=== PATIENT | female | born 1945 | race Caucasian/White ===

== ENCOUNTER → 2019-07-16 | Outpatient (CLI) | payer OTHER ==
[~2019-07-16] MED LIST: ASPI-555 PO; DICL1TAB5 PO; DULO30CA52 PO; LISI10TA7 PO; METO100T7 PO; MULT-1192 PO; OMEG100014 PO; RANI150C4 PO; ROSU10TA22 PO; VIT B COMPLEX PO
== END | disposition home or self-care (01) ==
LOC: RAH 12:39
PROVIDERS: ATTEND Internal Medicine
DX: Z01.818 Encounter for other preprocedural examination (principal); M47.814 Spondylosis without myelopathy or radiculopathy, thoracic region; M19.012 Primary osteoarthritis, left shoulder; M19.011 Primary osteoarthritis, right shoulder; I70.0 Atherosclerosis of aorta
CPT/HCPCS: 71046

== ENCOUNTER 2019-08-02 10:00 | Inpatient (IN) | payer OTHER ==
[~2019-08-02] VITALS: Ht 160 cm; Wt 83.8 kg
[~2019-08-02 10:00] MED LIST changes: -ASPI-555 PO; -DICL1TAB5 PO; -LISI10TA7 PO; -MULT-1192 PO; -RANI150C4 PO; -VIT B COMPLEX PO
[2019-08-02 12:33] LABS: BASOPHILS % (AUTO) 0.6 % (0.0-5.0); EOSINOPHILS % (AUTO) 2.6 % (0.0-8.0); HEMATOCRIT 38.8 % (36-48); LYMPHOCYTES % (AUTO) 23.2 % (21.0-51.0); MEAN CORPUSCULAR HEMOGLOBIN 30.3 pg (27.0-33.0); MEAN CORPUSCULAR HGB CONC 31.7 g/dL (32.0-36.0); MEAN CORPUSCULAR VOLUME 95.6 fL (79-99); MONOCYTES % (AUTO) 6.9 % (3.0-13.0); NEUTROPHILS % (AUTO) 66.5 % (40.0-77.0); PLATELET COUNT (AUTO) 241 K/uL (130-400); RED BLOOD CELL COUNT(AUTO) 4.06 MIL/uL (4.00-5.50); RED CELL DISTRIBUTION WIDTH 12.9 % (11.0-15.5); WHITE BLOOD COUNT (AUTO) 8.5 K/uL (4.8-10.8)
[2019-08-02 12:41] LABS: INR 0.97 (0.85-1.15); PROTHROMBIN TIME 10.5 SEC (9.6-11.6)
[2019-08-02 12:47] LABS: CREATININE 0.9 mg/dL (0.5-1.5); POTASSIUM 4.4 mmol/L (3.5-5.1)
[2019-08-02 13:27] VITALS: BP 181/73
[2019-08-02] MEDS ORDERED: VITAMIN B12 PO (14:34)
[2019-08-02] MEDS ORDERED: FAMO20TA8 PO (14:34)
[2019-08-02] MEDS ORDERED: LISI30TA4 PO (14:34)
[2019-08-02] MEDS ORDERED: L.AC1CAP6 PO (14:34)
[2019-08-02] MEDS ORDERED: CHOL200079 PO (14:34)
[2019-08-02] MEDS ORDERED: ASCO500T20 PO (14:34)
[2019-08-02] MEDS ORDERED: DICL2100G TP (14:34)
[2019-08-02] MEDS ORDERED: TRAM50TA4 PO (14:34)
[2019-08-02] MEDS ORDERED: TYLENOL PO (14:34)
[2019-08-02] MEDS ORDERED: MV-M1TAB57 PO (14:34)
[2019-08-02] MEDS ORDERED: DICL1TAB5 PO (14:34)
[2019-08-04 10:21] VITALS: BP 129/74
[2019-08-04] MEDS: CEFAZOLIN SODIUM 1 GM VIAL IVP SCH (10:30)
[2019-08-04] MEDS ORDERED: LACTATED RINGERS 1000ML 1,000 ML IV ONE (10:34)
--- NOTE | 2019-08-04 11:00 | NUR ---
POTENTIAL FOR INFECTION: NO SHAVING NEEDED TO LEFT HIP LEFT UPPER LEG ASSESSED PER TRUDY HUGHES. WIPED LEFT HIP / LEFT UPPER LEG WITH TREVOR: 2% CHLORHEXIDINE GLUCONATE CLOTH PATIENTS PRE-OP SKIN PREP PER TRUDY HUGHES.
[2019-08-04] MEDS ORDERED: ASPI-555 PO (11:35)
[2019-08-04] MEDS ORDERED: KETOROLAC TROMETHAMINE 15MG/ML ONE (15:33)
[2019-08-04] MEDS ORDERED: ACETAMINOPHEN EXTRA STRENGTH 500 MG TABLET ONE (15:33)
[2019-08-04] MEDS ORDERED: OXYCODONE HCL 10 MG TAB.SR.12H PO ONE (15:34)
[2019-08-04] MEDS ORDERED: LIDOCAINE PF 2% 5ML ABBOJECT ONE (15:36)
[2019-08-04] MEDS ORDERED: SUCCINYLCHOLINE 200MG/10ML SYR ONE ×2 (15:37→15:40)
[2019-08-04] MEDS: CELECOXIB 200 MG CAP ONE (15:37)
[2019-08-04] MEDS ORDERED: PROPOFOL 10 MG/ML 20ML VIAL IV ONE (15:37)
[2019-08-04] MEDS ORDERED: NEOSTIGMINE 5MG/5ML SYR IV ONE (15:37)
[2019-08-04] MEDS ORDERED: ONDANSETRON HCL 4 MG/2 ML VIAL ONE (15:37)
[2019-08-04] MEDS ORDERED: DEXAMETHASONE SOD PHOSPHATE 10MG/ML 1ML VIAL ONE (15:37)
[2019-08-04] MEDS ORDERED: GLYCOPYRROLATE 1 MG/5 ML SYRINGE ONE (15:37)
[2019-08-04] MEDS ORDERED: FENTANYL CITRATE PF 50 MCG/1 ML 2ML VIAL ONE (15:38)
[2019-08-04] MEDS ORDERED: ROCURONIUM 10MG/1ML SYR 10 MG/ML ML ONE (15:38)
[2019-08-04] MEDS ORDERED: MIDAZOLAM HCL 1 MG/ML 2ML VIAL ONE (15:38)
[2019-08-04 17:55] VITALS: BP 133/63
[2019-08-04] MEDS ORDERED: SODIUM CHLORIDE 0.9% 10 ML VIAL IVP PRN (19:00)
[2019-08-04] MEDS ORDERED: ENOXAPARIN SODIUM 30 MG/0.3 ML SQ ONE (19:30)
[2019-08-04 20:00] VITALS: BP 120/64
[2019-08-04] MEDS ORDERED: TYLENOL 650 MG PO PRN (20:30)
[2019-08-04] MEDS ORDERED: FAMOTIDINE 20MG TAB 20 MG TAB PO PRN (20:30)
[2019-08-04] MEDS ORDERED: TRAMADOL HCL 50 MG TABLET PO PRN (20:30)
[2019-08-04] MEDS ORDERED: ACETAMINOPHEN 325 MG TAB PO PRN (21:15)
[2019-08-04 23:56] VITALS: BP 127/66
[2019-08-05] VITALS (24 sets, daily range): BP systolic 109–161; BP diastolic 58–75
[2019-08-05] MEDS: CEFAZOLIN SODIUM 1 GM VIAL IVP SCH ×4 (06:00→23:59)
[2019-08-05] MEDS ORDERED: METOPROLOL SUCCINATE 50 MG TAB.SR.24H PO ONE (07:11)
[2019-08-05] MEDS ORDERED: LACTATED RINGERS 1000ML 1,000 ML IV ONE (07:28)
[2019-08-05] MEDS: METOPROLOL SUCCINATE 50 MG TAB.SR.24H PO SCH (07:28)
[2019-08-05] MEDS ORDERED: KETOROLAC TROMETHAMINE 15MG/ML ONE (07:42)
[2019-08-05] MEDS ORDERED: CEFAZOLIN SODIUM 1 GM VIAL ONE ×2 (07:59→11:37)
[2019-08-05] MEDS ORDERED: TRANEXAMIC ACID 1000MG/10ML ONE (07:59)
[2019-08-05] MEDS ORDERED: NEOSTIGMINE 5MG/5ML SYR IV ONE (08:04)
[2019-08-05] MEDS ORDERED: MIDAZOLAM HCL 1 MG/ML 2ML VIAL ONE (08:04)
[2019-08-05] MEDS ORDERED: LIDOCAINE PF 2% 5ML ABBOJECT ONE (08:04)
[2019-08-05] MEDS ORDERED: ROCURONIUM 10MG/1ML SYR 10 MG/ML ML ONE (08:04)
[2019-08-05] MEDS ORDERED: PROPOFOL 10 MG/ML 20ML VIAL IV ONE (08:04)
[2019-08-05] MEDS ORDERED: FENTANYL CITRATE PF 50 MCG/1 ML 2ML VIAL ONE ×2 (08:05→09:35)
[2019-08-05] MEDS: CELECOXIB 200 MG CAP ONE (08:20)
[2019-08-05] MEDS ORDERED: ACETAMINOPHEN EXTRA STRENGTH 500 MG TABLET ONE (08:25)
[2019-08-05] MEDS ORDERED: CELECOXIB 200 MG CAP ONE (08:25)
[2019-08-05] MEDS ORDERED: OXYCODONE HCL 10 MG TAB.SR.12H PO ONE (08:26)
[2019-08-05] MEDS: CRESTOR 10MG PO SCH (08:32)
[2019-08-05] MEDS ORDERED: NON-FORMULARY MEDICATION 1 EACH (Metoprolol Succinate (Toprol Xl) 100 MG) PO SCH (09:00)
[2019-08-05] MEDS ORDERED: NON-FORMULARY MEDICATION 1 EACH (Lisinopril 30 MG) PO SCH (09:00)
[2019-08-05] MEDS ORDERED: NON-FORMULARY MEDICATION 1 EACH (Rosuvastatin Calcium (Crestor) 10 MG) PO SCH (09:00)
[2019-08-05] MEDS ORDERED: EPHEDRINE SULFATE 50 MG/ML AMPULE ONE ×2 (09:02→09:21)
[2019-08-05] MEDS ORDERED: ONDANSETRON HCL 4 MG/2 ML VIAL IVP PRN (11:15)
[2019-08-05] MEDS ORDERED: LIDOCAINE HCL-MPF 1% 2ML VIAL IV PRN (11:15)
[2019-08-05] MEDS ORDERED: CALCIUM CARBONATE 500 MG TABLET PO PRN (11:15)
[2019-08-05] MEDS ORDERED: POTASSIUM CHLORIDE 20MEQ/100ML 100 ML IV PRN (11:15)
[2019-08-05] MEDS: ACETAMINOPHEN EXTRA STRENGTH 500 MG TABLET PO SCH ×2 (11:15→16:07)
[2019-08-05] MEDS ORDERED: POTASSIUM CHLORIDE 20 MEQ ERTAB PO PRN (11:15)
[2019-08-05] MEDS ORDERED: OXYCODONE HCL 5 MG TAB PO PRN ×2 (11:15)
[2019-08-05] MEDS ORDERED: DiphenhydrAMINE HCL 50 MG/ML VIAL IVP PRN (11:15)
[2019-08-05] MEDS ORDERED: TEMAZEPAM 15 MG CAPSULE PO PRN (11:15)
[2019-08-05] MEDS ORDERED: POTASSIUM CHLORIDE 10% ELIXIR 20 MEQ/15 ML UDCUP PO PRN (11:15)
[2019-08-05] MEDS: RANITIDINE HCL 15 MG/1 ML PO SCH ×2 (11:29→19:58)
[2019-08-05] MEDS: KETOROLAC TROMETHAMINE 15MG/ML IV PRN (12:58)
[2019-08-05] MEDS: DULOXETINE HCL 30 MG CAP PO SCH (12:58)
[2019-08-05] MEDS: LISINOPRIL 10 MG TABLET PO SCH (12:58)
[2019-08-05] MEDS: SODIUM CHLORIDE 0.9% 1000ML 1,000 ML IV SCH ×2 (12:59→21:14)
--- NOTE | 2019-08-05 14:09 | NUR ---
INITIAL MET W PATIENT FOR DISCHARGE PLANNING- PT LIVES ALONE, WITH PETS ,- 6 CATS-- HAS SUPPORTIVE FAMILY , NIECE AND GREAT NIECE.- NO STAIRS AT HOME, HAS ALL DME BUT DOES NOT USE- PREVIOUSLY INDEPENDENT AND DRIVES- ORDER FOR IP REHAB- 'PATIENT STATES WANTS [facility], VERBAL UGO FOR SAME , REP SHIRA NOTIFIED AND REFERRAL INITIATED. Addendum: 08/05/19 at 1421 by PÉREZ RIVERA RN CM Amended: Links added.
[2019-08-05] MEDS: CELECOXIB 200 MG CAP PO SCH (19:58)
[2019-08-05] MEDS: PREGABALIN 25 MG CAP PO SCH (19:58)
[2019-08-05] MEDS: ASPIRIN 81MG TAB.CHEW PO SCH (19:59)
[2019-08-06] MEDS: KETOROLAC TROMETHAMINE 15MG/ML IV PRN (01:13)
--- NOTE | 2019-08-06 03:00 | NUR ---
ROUNDS PATIENT AWAKE AND ALERT IN BED. NO COMPLAINTS OF PAIN VOICED AT THIS TIME. VITALS STABLE. AFEBRILE. RESP EVEN AND UNLABORED. NO SOB NOTED. ON ROOM AIR. IN GOOD SPIRITS. VOIDING WITHOUT DIFFICULTY VIA BEDPAN. NETTA DRESSING INTACT. FAMILY AT BEDSIDE. CALL LIGHT WITHIN REACH. WILL CONTINUE TO BE OBSERVED. Addendum: 08/06/19 at 8691 by LORNA ANDRE RN RN Amended: Links added.
[2019-08-06 03:18] VITALS: BP 108/50
[2019-08-06] MEDS: ACETAMINOPHEN EXTRA STRENGTH 500 MG TABLET PO SCH ×3 (03:54→18:47)
[2019-08-06 05:46] LABS: HEMATOCRIT 26.7 % (36-48); MEAN CORPUSCULAR HEMOGLOBIN 30.6 pg (27.0-33.0); MEAN CORPUSCULAR HGB CONC 32.6 g/dL (32.0-36.0); PLATELET COUNT (AUTO) 167 K/uL (130-400); RED BLOOD CELL COUNT(AUTO) 2.84 MIL/uL (4.00-5.50); RED CELL DISTRIBUTION WIDTH 12.9 % (11.0-15.5); WHITE BLOOD COUNT (AUTO) 9.7 K/uL (4.8-10.8)
[2019-08-06 05:53] LABS: CREATININE 0.9 mg/dL (0.5-1.5); POTASSIUM 3.9 mmol/L (3.5-5.1)
[2019-08-06] MEDS: SODIUM CHLORIDE 0.9% 1000ML 1,000 ML IV SCH (07:14)
[2019-08-06] MEDS: FERROUS FUMARATE 324 MG TABLET PO PRN (07:56)
[2019-08-06] MEDS: TRAMADOL HCL 50 MG TABLET PO PRN ×2 (07:57→13:17)
[2019-08-06 08:00] VITALS: BP 134/60
[2019-08-06] MEDS: RANITIDINE HCL 15 MG/1 ML PO SCH ×2 (09:00→21:00)
[2019-08-06] MEDS: CRESTOR 10MG PO SCH (09:00)
[2019-08-06] MEDS: DULOXETINE HCL 30 MG CAP PO SCH (09:12)
[2019-08-06] MEDS: ASPIRIN 81MG TAB.CHEW PO SCH ×2 (09:12→21:22)
[2019-08-06] MEDS: CELECOXIB 200 MG CAP PO SCH ×2 (09:12→21:22)
[2019-08-06] MEDS: LISINOPRIL 10 MG TABLET PO SCH (09:13)
[2019-08-06] MEDS: PREGABALIN 25 MG CAP PO SCH ×2 (09:14→21:23)
[2019-08-06] MEDS: METOPROLOL SUCCINATE 50 MG TAB.SR.24H PO SCH (09:14)
[2019-08-06] MEDS: POLYETHYLENE GLYCOL 3350 17 GM POWD.PACK PO SCH (09:15)
[2019-08-06 12:00] VITALS: BP 106/54
[2019-08-06 16:00] VITALS: BP 116/49
[2019-08-06 20:00] VITALS: BP 107/57
[2019-08-07] VITALS: BP 104/55
[2019-08-07] MEDS: ACETAMINOPHEN EXTRA STRENGTH 500 MG TABLET PO SCH ×2 (02:26→11:35)
[2019-08-07 04:00] VITALS: BP 110/50
[2019-08-07 06:47] LABS: HEMATOCRIT 26.4 % (36-48)
[2019-08-07 08:00] VITALS: BP 116/59
[2019-08-07] MEDS: PREGABALIN 25 MG CAP PO SCH (08:17)
[2019-08-07] MEDS: DULOXETINE HCL 30 MG CAP PO SCH (08:17)
[2019-08-07] MEDS: FERROUS FUMARATE 324 MG TABLET PO PRN (08:17)
[2019-08-07] MEDS: POLYETHYLENE GLYCOL 3350 17 GM POWD.PACK PO SCH (08:17)
[2019-08-07] MEDS: CELECOXIB 200 MG CAP PO SCH (08:18)
[2019-08-07] MEDS: ASPIRIN 81MG TAB.CHEW PO SCH (08:18)
[2019-08-07] MEDS: RANITIDINE HCL 15 MG/1 ML PO SCH (08:25)
[2019-08-07] MEDS: METOPROLOL SUCCINATE 50 MG TAB.SR.24H PO SCH (09:00)
[2019-08-07] MEDS: CRESTOR 10MG PO SCH (09:00)
[2019-08-07] MEDS: LISINOPRIL 10 MG TABLET PO SCH (09:00)
[2019-08-07 09:44] VITALS: BP 92/46
--- NOTE | 2019-08-07 09:45 | NUR ---
HOLDING PT'S LISINOPRIL AND METOPROL DUE TO LOW BLOOD PRESSURE, CURRENTLY 92/46 AFTER WALKING AND CURRENTLY SITTING IN A CHAIR; WILL TALK TO DR CONNOR ABOUT GIVEN METOPROLOL DUE TO HR OF 100
--- NOTE | 2019-08-07 11:11 | NUR ---
I HAVE SPOKEN TO DR CONNOR ON THE PHONE AND INFORMED OF CURRENT LOW BLOOD PRESSURES AND HR AT 80 - 100; HE ORDERED TO GIVE HER I PRBC AND HAVE PHYSICAL THERAPY WALK HER AFTERWARDS THEN PLAN ON D/C TO [facility] THIS EVENING.
[2019-08-07] MEDS ORDERED: SODIUM CHLORIDE 0.9% 250 ML IV ONE (11:15)
--- NOTE | 2019-08-07 11:41 | NUR ---
cm note spoke to cipriano with [facility] and states pt is accepted. and can transfer today if md orders. updated linsey primary nurse.
[2019-08-07 12:00] VITALS: BP 101/61
--- NOTE | 2019-08-07 12:00 | NUR ---
UNIT OF PRBC INITIATED; VS STABLE ON INITIATION
--- NOTE | 2019-08-07 12:43 | NUR ---
PATIENT RECEIVING BLOOD WHEN PT CAME BY. BLOOD TRANSFUSION TO TAKE 2-3 HRS PER NURSE. Addendum: 08/07/19 at 1243 by JOBY TERRAZAS PT Amended: Links added.
[2019-08-07] MEDS ORDERED: ACET1TAB12 PO (13:58)
[2019-08-07] MEDS ORDERED: FERR324T10 PO (13:58)
[2019-08-07] MEDS ORDERED: TRAM50TA4 PO (13:58)
[2019-08-07] MEDS ORDERED: ASPI-1005 PO (13:58)
[2019-08-07 16:00] VITALS: BP 123/57
--- NOTE | 2019-08-07 17:00 | NUR ---
D/C PAPERWORK COMPLETE; D/C PAPERS FAXED AND REPORT CALLED TO MICHELLE VILLANUEVA AT [facility]; NETTA DRESSING TO LEFT HIP CHANGED; PT HAS A WELL APPROX. INC. LINE WITH ABSORBABLE SUTURES IN PLACE, SCANT FRESH BLOODY DRAINAGE NOTED, NO REDNESS, SLIGHT EDEMA; NEW NETTA DRESSING APPLIED, PT PAOLA. WELL; PT INSTRUCTED ON AFTER CARE FOR A HIP REPLACEMENT INCLUDING F/U APPOINTMENT W/ GEETA, ACTIVITY LEVEL, WOUND CARE W/ NETTA DRESSING, SCRIPTS FOR PAIN MEDS AND ANTICOAGULANTS, AND SIGNS AND SYMPTOMS OF INFECTION OR OTHER PROBLEMS TO WATCH FOR AND REPORT TO MD; PT STATED UNDERSTANDING OF ALL INSTRUCTIONS.
--- NOTE | 2019-08-07 17:55 | NUR ---
GENE GUTIERREZ FROM [facility] HERE TO SKI TECHNICIAN PATIENT.
[2019-08-08] MEDS ORDERED: BISACODYL 10 MG SUPP.RECT RC PRN (11:15)
== END 2019-08-07 17:55 | DRG 470 ==
LOC: DAHIP 08-04 09:07 → EDSTATUS 08-04 10:00 → 4AH 08-04 17:35
PROVIDERS: ADMIT Orthopaedic Surgery; ATTEND Orthopaedic Surgery
PROC: 0SRB0JZ Replacement of Left Hip Joint with Synthetic Substitute, Open Approach (ICD-10-PCS; principal; 2019-08-05 09:35)
PROC: 3E0R3BZ Introduction of Anesthetic Agent into Spinal Canal, Percutaneous Approach (ICD-10-PCS; 2019-08-05 09:35)
PROC: 30233N1 Transfusion of Nonautologous Red Blood Cells into Peripheral Vein, Percutaneous Approach (ICD-10-PCS; 2019-08-07)
DX: M16.12 Unilateral primary osteoarthritis, left hip (principal); D62 Acute posthemorrhagic anemia; E78.00 Pure hypercholesterolemia, unspecified; I10 Essential (primary) hypertension; Z96.641 Presence of right artificial hip joint; E66.01 Morbid (severe) obesity due to excess calories; Z79.82 Long term (current) use of aspirin; Z68.32 Body mass index [BMI] 32.0-32.9, adult; Z90.710 Acquired absence of both cervix and uterus; Z79.899 Other long term (current) drug therapy; Z86.73 Personal history of transient ischemic attack (TIA), and cerebral infarction without residual deficits
CPT/HCPCS: 36415; 73503; 80048; 85014; 85018; 85025; 85027; 85610; 86850; 86900; 86901; 86922; 87641; 88304; 88311; 96374; 97039; C1776; G0378; J0330; J0690; J1100; J1650; J1885; J2001; J2250; J2405; J2704; J2710; J3010; J3490; J7030; J7120; P9016

== ENCOUNTER → 2020-01-17 | Outpatient (CLI) | payer OTHER ==
[~2020-01-17] MED LIST changes: +ACET1TAB12 PO; +ASCO500T20 PO; +ASPI-1005 PO; +ASPI-556 PO; +CHOL200079 PO; +DICL1TAB5 PO; +DICL2100G TP; +FAMO20TA8 PO; +FERR324T10 PO; +L.AC1CAP6 PO; +LISI30TA4 PO; +MV-M1TAB57 PO; +TRAM50TA4 PO; +TYLENOL PO; +VITAMIN B12 PO
== END | disposition home or self-care (01) ==
LOC: RAH 10:02
PROVIDERS: ATTEND Internal Medicine
DX: Z12.31 Encounter for screening mammogram for malignant neoplasm of breast (principal); N64.89 Other specified disorders of breast
CPT/HCPCS: 77067

== ENCOUNTER → 2020-03-14 | Outpatient (CLI) | payer OTHER | END | disposition home or self-care (01) | LOC: RAH 09:14 | PROVIDERS: ATTEND Internal Medicine | DX: M41.9 Scoliosis, unspecified (principal); M48.061 Spinal stenosis, lumbar region without neurogenic claudication; M48.36 Traumatic spondylopathy, lumbar region | CPT/HCPCS: 72148 ==

== ENCOUNTER → 2020-07-04 | Outpatient (CLI) | payer MEDICARE | END | disposition home or self-care (01) | LOC: RAH 11:11 | PROVIDERS: ATTEND Physical Medicine & Rehabilitation | DX: M47.812 Spondylosis without myelopathy or radiculopathy, cervical region (principal); M48.02 Spinal stenosis, cervical region | CPT/HCPCS: 72052 ==

== ENCOUNTER → 2020-08-02 | Outpatient (CLI) | payer MEDICARE ==
[~2020-08-02] MED LIST changes: +IOHEXOL 350 MG/ML 100ML INFUS..BTL IV ONE; +IOHEXOL-350 50ML VIAL IV ONE; +LIDOCAINE HCL 2% 20ML ONE; +NITROGLYCERIN 2 MG/VIAL VIAL IV ONE; +SODIUM BICARB 50MEQ 50ML VIAL 0 ML ONE
== END | disposition home or self-care (01) ==
LOC: RAH 14:49
PROVIDERS: ATTEND Physical Medicine & Rehabilitation
DX: M48.02 Spinal stenosis, cervical region (principal); M50.323 Other cervical disc degeneration at C6-C7 level; M47.812 Spondylosis without myelopathy or radiculopathy, cervical region
CPT/HCPCS: 72141; J1644; J3490; Q9967

== ENCOUNTER → 2021-04-23 | Outpatient (CLI) | payer MEDICARE ==
[~2021-04-23] MED LIST changes: -IOHEXOL 350 MG/ML 100ML INFUS..BTL IV ONE; -IOHEXOL-350 50ML VIAL IV ONE; -LIDOCAINE HCL 2% 20ML ONE; -NITROGLYCERIN 2 MG/VIAL VIAL IV ONE; -SODIUM BICARB 50MEQ 50ML VIAL 0 ML ONE
== END | disposition home or self-care (01) ==
LOC: RAH 13:12
PROVIDERS: ATTEND Internal Medicine
DX: Z12.31 Encounter for screening mammogram for malignant neoplasm of breast (principal)
CPT/HCPCS: 77063; 77067

== ENCOUNTER 2021-05-30 06:16 | Day surgery (SDC) | payer MEDICARE ==
[2021-05-29 11:46] LABS: BASOPHILS % (AUTO) 0.5 % (0.0-5.0); EOSINOPHILS % (AUTO) 1.5 % (0.0-8.0); HEMATOCRIT 38.4 % (36-48); LYMPHOCYTES % (AUTO) 21.4 % (21.0-51.0); MEAN CORPUSCULAR HEMOGLOBIN 30.3 pg (27.0-33.0); MEAN CORPUSCULAR HGB CONC 32.3 g/dL (32.0-36.0); MEAN CORPUSCULAR VOLUME 93.9 fL (79-99); MONOCYTES % (AUTO) 7.6 % (3.0-13.0); NEUTROPHILS % (AUTO) 68.8 % (40.0-77.0); PLATELET COUNT (AUTO) 208 K/uL (130-400); RED BLOOD CELL COUNT(AUTO) 4.09 MIL/uL (4.00-5.50); RED CELL DISTRIBUTION WIDTH 13.7 % (11.0-15.5); WHITE BLOOD COUNT (AUTO) 8.9 K/uL (4.8-10.8)
[2021-05-29 11:53] LABS: POTASSIUM 5.1 mmol/L (3.5-5.1)
[2021-05-29 12:28] VITALS: BP 147/70
[~2021-05-30] VITALS: Ht 162.6 cm; Wt 89.0 kg
[2021-05-30] VITALS (11 sets, daily range): BP systolic 113–161; BP diastolic 53–76
[~2021-05-30 06:16] MED LIST changes: -ACET1TAB12 PO; -ASPI-556 PO; -DICL1TAB5 PO; -DICL2100G TP; -DULO30CA52 PO; -FERR324T10 PO; +GABA-529 PO; -TRAM50TA4 PO
[2021-05-30] MEDS ORDERED: CEFAZOLIN SODIUM 1 GM VIAL ONE (06:23)
[2021-05-30] MEDS ORDERED: LACTATED RINGERS 1000ML 1,000 ML IV ONE (06:23)
[2021-05-30] MEDS ORDERED: VITAMIN B12 PO (07:10)
[2021-05-30] MEDS ORDERED: DULO30CA2 PO (07:10)
[2021-05-30] MEDS ORDERED: FENTANYL CITRATE PF 50 MCG/1 ML 2ML VIAL ONE (07:24)
[2021-05-30] MEDS ORDERED: PROPOFOL 10 MG/ML 20ML VIAL IV ONE (07:24)
[2021-05-30] MEDS ORDERED: LIDOCAINE PF 100MG/5ML (2%) SYRINGE 5ML ONE (07:24)
[2021-05-30] MEDS ORDERED: MIDAZOLAM HCL 1 MG/ML 2ML VIAL ONE (07:24)
[2021-05-30] MEDS ORDERED: LIDOCAINE HCL-MPF 0.5% 50ML VIAL IJ ONE (07:50)
[2021-05-30] MEDS ORDERED: CEFAZOLIN SODIUM 1 GM VIAL IVP ONE (08:00)
== END 2021-05-30 09:25 | disposition home or self-care (01) ==
LOC: DAH 06:16
PROVIDERS: ATTEND Neurological Surgery
DX: G56.02 Carpal tunnel syndrome, left upper limb (principal); Z20.822 Contact with and (suspected) exposure to COVID-19; I10 Essential (primary) hypertension; E78.5 Hyperlipidemia, unspecified; K21.9 Gastro-esophageal reflux disease without esophagitis; Z86.73 Personal history of transient ischemic attack (TIA), and cerebral infarction without residual deficits; Z79.899 Other long term (current) drug therapy; Z79.82 Long term (current) use of aspirin
CPT/HCPCS: 36415; 64721; 80048; 85025; 87635; 93005; A4215; A4216; A4221; A4222; A4223; A4663; A6260; C9803; J0690; J2001; J2250; J2704; J3010; J3490; J7120

== ENCOUNTER → 2022-09-03 | Outpatient (CLI) | payer MEDICARE ==
[~2022-09-03] MED LIST changes: +DULO30CA2 PO
== END | disposition home or self-care (01) ==
LOC: RAH 13:02
PROVIDERS: ATTEND Internal Medicine
DX: Z12.31 Encounter for screening mammogram for malignant neoplasm of breast (principal)
CPT/HCPCS: 77063; 77067

== ENCOUNTER → 2023-08-04 | Outpatient (CLI) | payer MEDICARE | END | disposition home or self-care (01) | LOC: RAH 11:07 | PROVIDERS: ATTEND Internal Medicine | DX: S82.092A Other fracture of left patella, initial encounter for closed fracture (principal); M17.12 Unilateral primary osteoarthritis, left knee; M25.562 Pain in left knee; X58.XXXA Exposure to other specified factors, initial encounter; Y93.89 Activity, other specified; Y92.89 Other specified places as the place of occurrence of the external cause; Y99.8 Other external cause status | CPT/HCPCS: 73562 ==

== ENCOUNTER → 2023-09-05 | Outpatient (CLI) | payer MEDICARE | END | disposition home or self-care (01) | LOC: RAH 10:45 | PROVIDERS: ATTEND Internal Medicine | DX: Z12.31 Encounter for screening mammogram for malignant neoplasm of breast (principal) | CPT/HCPCS: 77063; 77067 ==